=== PATIENT | female | born 1990 | race African-American/Black ===

== ENCOUNTER 2022-12-16 09:34 | Emergency (ER) | payer MEDICAID, OTHER ==
[~2022-12-16] VITALS: Ht 170.2 cm; Wt 83.0 kg
[~2022-12-16 09:34] MED LIST: ALBUTEROL
[2022-12-16] MEDS ORDERED: ALBUTEROL (0.083%) 2.5MG/3ML NEB HHN STA (09:57)
[2022-12-16] MEDS ORDERED: IPRATROPIUM BROMIDE (0.02%) 0.5MG/2.5ML NEB HHN STA (09:57)
[2022-12-16] MEDS ORDERED: PREDNISONE 20MG TABLET PO ONE (10:00)
[2022-12-16] MEDS ORDERED: P20 PO (10:07)
[2022-12-16] MEDS ORDERED: ALBU6.7H3 INH (10:07)
[2022-12-16 10:25] VITALS: PULSE 86; RESP 24; O2SAT 96
[2022-12-16 11:07] VITALS: BP 133/82; PULSE 82; RESP 18; TEMP 99.6
== END 2022-12-16 11:10 | disposition home or self-care (01) ==
LOC: ER 09:34
DX: J45.901 Unspecified asthma with (acute) exacerbation (principal)
CPT/HCPCS: 94640; 99283; J7512; Z7610 ×3

== ENCOUNTER 2023-09-15 22:43 | Emergency (ER) | payer MEDICAID, OTHER ==
[~2023-09-15] VITALS: Ht 165.1 cm; Wt 93.1 kg
[~2023-09-15 22:43] MED LIST changes: +ALBU6.7H3 INH; +P20 PO
[2023-09-15 22:47] VITALS: TEMP 98.4
[2023-09-15] MEDS ORDERED: ALBU6.7H15 INH (23:19)
[2023-09-15] MEDS ORDERED: P20 MT (23:19)
[2023-09-15 23:35] VITALS: PULSE 80; RESP 18; O2SAT 98
[2023-09-15] MEDS: IPRATROPIUM/ALBUTEROL 0.5-3(2.5)MG/3ML NEB HHN ONE (23:35)
[2023-09-15] MEDS: PREDNISONE 20MG TABLET PO ONE (23:46)
[2023-09-16] MEDS ORDERED: ALBU05 NEB (00:04)
[2023-09-16 01:18] VITALS: BP 130/80; PULSE 70; RESP 15
== END 2023-09-16 01:19 | disposition home or self-care (01) ==
LOC: ER 22:43
DX: J45.909 Unspecified asthma, uncomplicated (principal)
CPT/HCPCS: 94640; 99283; J7512; Z7610 ×3